=== PATIENT | male | born 1950 | race Caucasian/White ===

== ENCOUNTER 2020-07-21 12:11 | Inpatient (IN) ==
[2020-07-21] MEDS ORDERED: SODIUM CHLORIDE 0.9% 1,000 ML IV STA (13:04)
[2020-07-21 13:15] LABS: Basophils % 0.1 % (0.0-0.8); Hematocrit 40.4 VOL% (42.0-52.0); Immature Granulocytes % 2.2 %; Immature Granulocytes Absolute 0.29 #; Lymphocytes # 0.4 10*3/uL (1.4-4.0); Lymphocytes % 3.2 % (21.2-54.2); Mean Corpuscular HGB Conc 34.7 GM/DL (32-36); Mean Corpuscular Volume 96.9 FL (87-102); Mean Platelet Volume 9.9 FL (9.6-12.0); Monocytes % 2.2 % (1.7-12.7); Neutrophils % 92.3 % (38.7-73.9); Platelet Count 162 T/CUMM (130-400); Red Blood Count 4.17 MC/CUMM (3.8-5.5); Red Cell Distribution Width 12.2 % (9.3-17.3); White Blood Count 13.2 T/CUMM (4-12)
[2020-07-21 13:39] LABS: Albumin 2.2 G/DL (3.4-5.0); Bilirubin,Total 0.5 MG/DL (0.2-1.0); Calcium 8.3 MG/DL (8.5-10.1); Osmolality,Calculated 286.5 MOS/KG (273-304); Potassium 3.9 MMOL/L (3.5-5.1)
[2020-07-21 13:41] LABS: Troponin I < 0.015 NG/ML (0.00-0.045)
[2020-07-21 14:01] LABS: Ferritin 1012.2 ng/ml (26-388)
[2020-07-21 15:07] LABS: Bilirubin,Urine Negative (Negative); Blood, Urine Negative (Negative); Glucose,Urine (UA) Negative (Negative); Ketones,Urine Negative (Negative); Mucus,Urine Occasional /LPF (Occasional); Nitrite,Urine Negative (Negative); Protein,Urine 30 MG/DL; RBC,Urine 1 /HPF (0-4); Squamous Epithelial Cell,Urine Occasional /HPF (0-10); Urine Appearance CLEAR (Clear); Urine Color Yellow (Yellow); Urine Specific Gravity 1.024 (1.001-1.035); Urine Urobilinogen < 2.0 EU/DL (0.2-1.0); WBC,Urine 3 /HPF (0-6)
[2020-07-21 15:23] LABS: Lymphocytes 3 % (20-55); Segmented Neutrophils 94 % (50-85); Total Cells Counted 100
[2020-07-21] MEDS ORDERED: DEXTROSE 50% 25 GM/50 ML VIAL IV PRN (15:39)
[2020-07-21] MEDS ORDERED: ONDANSETRON 4 MG/2 ML VIAL IV PRN (15:39)
[2020-07-21] MEDS ORDERED: GLUCAGON 1 MG VIAL IM PRN (15:39)
[2020-07-21] MEDS ORDERED: ACETAMINOPHEN 325 MG TABLET PO PRN (15:39)
[2020-07-21] MEDS ORDERED: SODIUM CHLOR 0.9% KCL 20 MEQ 20 MEQ/1,000 ML BAG IV SCH (16:00)
[2020-07-21] MEDS ORDERED: AZITHROMYCIN INJ 500 MG in SODIUM CHLORIDE 0.9% 250 ML IV SCH (16:00)
[2020-07-21] MEDS ORDERED: cefTRIAXone 1,000 MG in SYRINGE 1 EACH IV SCH (16:00)
[2020-07-21 16:08] LABS: Thyroid Stimulating Hormone 0.641 uIU/ml (0.358-3.74)
[2020-07-21] MEDS: PANTOPRAZOLE 40 MG TABLET PO SCH (18:09)
[2020-07-21] MEDS: CETIRIZINE 10 MG TABLET PO SCH (18:09)
[2020-07-21] MEDS: ZINC SULFATE 220 MG CAPSULE PO SCH (18:09)
[2020-07-21] MEDS: DEXAMETHASONE 4 MG/1 ML VIAL IV SCH (18:09)
[2020-07-21] MEDS: ENOXAPARIN 40 MG/0.4 ML SYRINGE SUBCUT SCH (20:42)
[2020-07-21] MEDS: ASCORBIC ACID 500 MG TABLET PO SCH (20:42)
[2020-07-21] MEDS: ALBUTEROL INHALER 18 GM INH SCH (20:43)
[2020-07-22] MEDS: ALBUTEROL INHALER 18 GM INH SCH ×4 (01:10→19:23)
[2020-07-22 05:57] LABS: Basophils % 0.1 % (0.0-0.8); Hematocrit 36.3 VOL% (42.0-52.0); Hemoglobin 12.3 GM/DL (14.0-18.0); Immature Granulocytes % 1.4 %; Immature Granulocytes Absolute 0.12 #; Lymphocytes # 0.5 10*3/uL (1.4-4.0); Lymphocytes % 5.4 % (21.2-54.2); Mean Corpuscular HGB Conc 33.9 GM/DL (32-36); Mean Corpuscular Volume 99.2 FL (87-102); Monocytes % 2.4 % (1.7-12.7); Neutrophils % 90.7 % (38.7-73.9); Platelet Count 154 T/CUMM (130-400); Red Blood Count 3.66 MC/CUMM (3.8-5.5); Red Cell Distribution Width 12.3 % (9.3-17.3); White Blood Count 8.4 T/CUMM (4-12)
[2020-07-22 06:11] LABS: Calcium 7.9 MG/DL (8.5-10.1); Osmolality,Calculated 291.1 MOS/KG (273-304); Potassium 4.5 MMOL/L (3.5-5.1)
[2020-07-22 06:23] LABS: Hypochromasia Slight; Lymphocytes 4 % (20-55); Platelet Estimate Adequate; Segmented Neutrophils 95 % (50-85); Total Cells Counted 100
[2020-07-22] MEDS: DEXAMETHASONE 4 MG/1 ML VIAL IV SCH (10:42)
[2020-07-22] MEDS: ASCORBIC ACID 500 MG TABLET PO SCH ×2 (10:43→21:47)
[2020-07-22] MEDS: ZINC SULFATE 220 MG CAPSULE PO SCH (10:43)
[2020-07-22] MEDS: PANTOPRAZOLE 40 MG TABLET PO SCH (10:43)
[2020-07-22] MEDS: CETIRIZINE 10 MG TABLET PO SCH (10:43)
[2020-07-22] MEDS: CHOLECALCIFEROL 1,000 UNIT TABLET PO SCH (10:43)
[2020-07-22] MEDS: methylPREDNISolone SOD SUC 40 MG/1 ML VIAL IV SCH ×2 (15:35→23:01)
[2020-07-22] MEDS: ENOXAPARIN 40 MG/0.4 ML SYRINGE SUBCUT SCH (21:47)
[2020-07-23] MEDS: ALBUTEROL INHALER 18 GM INH SCH ×4 (00:35→19:04)
[2020-07-23 06:12] LABS: Basophils % 0.1 % (0.0-0.8); Hematocrit 38.6 VOL% (42.0-52.0); Hemoglobin 12.8 GM/DL (14.0-18.0); Immature Granulocytes % 1.3 %; Lymphocytes # 0.4 10*3/uL (1.4-4.0); Lymphocytes % 4.8 % (21.2-54.2); Mean Corpuscular HGB Conc 33.2 GM/DL (32-36); Mean Corpuscular Volume 100.5 FL (87-102); Mean Platelet Volume 9.6 FL (9.6-12.0); Monocytes % 1.8 % (1.7-12.7); Platelet Count 175 T/CUMM (130-400); Red Blood Count 3.84 MC/CUMM (3.8-5.5); Red Cell Distribution Width 12.4 % (9.3-17.3); White Blood Count 7.9 T/CUMM (4-12)
[2020-07-23 06:29] LABS: Calcium 8.4 MG/DL (8.5-10.1); Osmolality,Calculated 294.1 MOS/KG (273-304); Potassium 4.6 MMOL/L (3.5-5.1)
[2020-07-23 06:36] LABS: Lymphocytes 5 % (20-55); Segmented Neutrophils 94 % (50-85); Total Cells Counted 100
[2020-07-23 06:37] LABS: Ferritin 791.8 ng/ml (26-388); Macrocytosis Slight; Platelet Estimate Normal
[2020-07-23] MEDS: CHOLECALCIFEROL 1,000 UNIT TABLET PO SCH (08:20)
[2020-07-23] MEDS: CETIRIZINE 10 MG TABLET PO SCH (08:20)
[2020-07-23] MEDS: ASCORBIC ACID 500 MG TABLET PO SCH ×2 (08:20→21:52)
[2020-07-23] MEDS: PANTOPRAZOLE 40 MG TABLET PO SCH (08:20)
[2020-07-23] MEDS: ZINC SULFATE 220 MG CAPSULE PO SCH (08:20)
[2020-07-23] MEDS: methylPREDNISolone SOD SUC 40 MG/1 ML VIAL IV SCH ×3 (08:38→23:26)
[2020-07-23] MEDS ORDERED: REMDESIVIR 200 MG in SODIUM CHLORIDE 0.9% 210 ML IV ONE (09:00)
[2020-07-23] MEDS ORDERED: SODIUM CHLORIDE 0.9% 1,000 ML IV PRN (12:50)
[2020-07-23] MEDS: ENOXAPARIN 40 MG/0.4 ML SYRINGE SUBCUT SCH (21:52)
[2020-07-24] MEDS: ALBUTEROL INHALER 18 GM INH SCH ×4 (00:14→19:03)
[2020-07-24] MEDS: methylPREDNISolone SOD SUC 40 MG/1 ML VIAL IV SCH ×3 (07:58→17:00)
[2020-07-24] MEDS: CETIRIZINE 10 MG TABLET PO SCH (08:00)
[2020-07-24] MEDS: ZINC SULFATE 220 MG CAPSULE PO SCH (08:00)
[2020-07-24] MEDS: PANTOPRAZOLE 40 MG TABLET PO SCH (08:00)
[2020-07-24] MEDS: ASCORBIC ACID 500 MG TABLET PO SCH ×2 (08:00→21:10)
[2020-07-24] MEDS: CHOLECALCIFEROL 1,000 UNIT TABLET PO SCH (08:00)
[2020-07-24] MEDS: REMDESIVIR 100 MG in SODIUM CHLORIDE 0.9% 230 ML IV SCH (08:46)
[2020-07-24] MEDS: ENOXAPARIN 40 MG/0.4 ML SYRINGE SUBCUT SCH (21:10)
[2020-07-25] MEDS: ALBUTEROL INHALER 18 GM INH SCH ×4 (00:06→18:15)
[2020-07-25] MEDS: methylPREDNISolone SOD SUC 40 MG/1 ML VIAL IV SCH ×3 (01:53→16:42)
[2020-07-25 05:23] LABS: Basophils % 0.1 % (0.0-0.8); Hematocrit 41.6 VOL% (42.0-52.0); Hemoglobin 13.6 GM/DL (14.0-18.0); Immature Granulocytes % 1.9 %; Immature Granulocytes Absolute 0.17 #; Lymphocytes # 0.4 10*3/uL (1.4-4.0); Lymphocytes % 4.3 % (21.2-54.2); Mean Corpuscular HGB Conc 32.7 GM/DL (32-36); Mean Platelet Volume 10.1 FL (9.6-12.0); Monocytes % 3.4 % (1.7-12.7); Neutrophils % 90.3 % (38.7-73.9); Platelet Count 163 T/CUMM (130-400); Red Blood Count 4.08 MC/CUMM (3.8-5.5); Red Cell Distribution Width 12.2 % (9.3-17.3); White Blood Count 8.9 T/CUMM (4-12)
[2020-07-25 05:46] LABS: Lymphocytes 4 % (20-55); Macrocytosis Slight; Platelet Estimate Normal; Segmented Neutrophils 93 % (50-85); Total Cells Counted 100
[2020-07-25 05:57] LABS: Albumin 2.2 G/DL (3.4-5.0); Bilirubin,Total 0.6 MG/DL (0.2-1.0); Calcium 8.4 MG/DL (8.5-10.1); Osmolality,Calculated 295.8 MOS/KG (273-304); Potassium 4.2 MMOL/L (3.5-5.1); Total Protein 6.5 G/DL (6.4-8.3)
[2020-07-25] MEDS: PANTOPRAZOLE 40 MG TABLET PO SCH (10:13)
[2020-07-25] MEDS: REMDESIVIR 100 MG in SODIUM CHLORIDE 0.9% 230 ML IV SCH (10:13)
[2020-07-25] MEDS: ASCORBIC ACID 500 MG TABLET PO SCH ×2 (10:13→21:00)
[2020-07-25] MEDS: CHOLECALCIFEROL 1,000 UNIT TABLET PO SCH (10:13)
[2020-07-25] MEDS: ZINC SULFATE 220 MG CAPSULE PO SCH (10:14)
[2020-07-25] MEDS: CETIRIZINE 10 MG TABLET PO SCH (10:14)
[2020-07-25] MEDS: ENOXAPARIN 40 MG/0.4 ML SYRINGE SUBCUT SCH (21:00)
[2020-07-26] MEDS: methylPREDNISolone SOD SUC 40 MG/1 ML VIAL IV SCH ×3 (02:05→22:10)
[2020-07-26] MEDS: ALBUTEROL INHALER 18 GM INH SCH ×2 (02:05→06:10)
[2020-07-26] MEDS: ASCORBIC ACID 500 MG TABLET PO SCH ×3 (02:05→21:05)
[2020-07-26 06:52] LABS: Basophils % 0.1 % (0.0-0.8); Hematocrit 37.5 VOL% (42.0-52.0); Hemoglobin 12.6 GM/DL (14.0-18.0); Immature Granulocytes % 1.7 %; Immature Granulocytes Absolute 0.14 #; Lymphocytes # 0.5 10*3/uL (1.4-4.0); Lymphocytes % 6.5 % (21.2-54.2); Mean Corpuscular HGB Conc 33.6 GM/DL (32-36); Mean Corpuscular Volume 101.4 FL (87-102); Monocytes % 4.8 % (1.7-12.7); Neutrophils % 86.9 % (38.7-73.9); Platelet Count 144 T/CUMM (130-400); Red Cell Distribution Width 12.2 % (9.3-17.3); White Blood Count 8.3 T/CUMM (4-12)
[2020-07-26 07:20] LABS: Calcium 8.1 MG/DL (8.5-10.1); Osmolality,Calculated 289.1 MOS/KG (273-304); Potassium 4.5 MMOL/L (3.5-5.1)
[2020-07-26] MEDS: CHOLECALCIFEROL 1,000 UNIT TABLET PO SCH (10:04)
[2020-07-26] MEDS: FAMOTIDINE 20 MG TABLET PO SCH ×2 (10:04→21:05)
[2020-07-26] MEDS: CETIRIZINE 10 MG TABLET PO SCH (10:04)
[2020-07-26] MEDS: REMDESIVIR 100 MG in SODIUM CHLORIDE 0.9% 230 ML IV SCH (10:04)
[2020-07-26] MEDS: ZINC SULFATE 220 MG CAPSULE PO SCH (10:04)
[2020-07-26] MEDS: ENOXAPARIN 40 MG/0.4 ML SYRINGE SUBCUT SCH (21:05)
[2020-07-27 06:44] LABS: Basophils % 0.3 % (0.0-0.8); Hemoglobin 13.4 GM/DL (14.0-18.0); Immature Granulocytes % 1.5 %; Immature Granulocytes Absolute 0.11 #; Lymphocytes # 0.3 10*3/uL (1.4-4.0); Lymphocytes % 4.6 % (21.2-54.2); Mean Corpuscular HGB Conc 33.5 GM/DL (32-36); Mean Corpuscular Volume 100.8 FL (87-102); Mean Platelet Volume 10.5 FL (9.6-12.0); Monocytes % 2.1 % (1.7-12.7); Neutrophils % 91.5 % (38.7-73.9); Platelet Count 147 T/CUMM (130-400); Red Blood Count 3.97 MC/CUMM (3.8-5.5); White Blood Count 7.2 T/CUMM (4-12)
[2020-07-27 08:16] LABS: Bilirubin,Total 0.9 MG/DL (0.2-1.0); Calcium 8.2 MG/DL (8.5-10.1); Osmolality,Calculated 285.4 MOS/KG (273-304); Potassium 4.5 MMOL/L (3.5-5.1); Total Protein 5.7 G/DL (6.4-8.3)
[2020-07-27 08:58] LABS: Anisocytosis 1+; Band Neutrophils 2 % (0-10); Lymphocytes 5 % (20-55); Platelet Estimate Adequate; Segmented Neutrophils 91 % (50-85); Total Cells Counted 100
[2020-07-27 08:59] LABS: Macrocytosis 1+
[2020-07-27] MEDS: CETIRIZINE 10 MG TABLET PO SCH (09:25)
[2020-07-27] MEDS: FAMOTIDINE 20 MG TABLET PO SCH ×2 (09:26→19:50)
[2020-07-27] MEDS: ASCORBIC ACID 500 MG TABLET PO SCH ×2 (09:26→19:50)
[2020-07-27] MEDS: CHOLECALCIFEROL 1,000 UNIT TABLET PO SCH (09:26)
[2020-07-27] MEDS: ZINC SULFATE 220 MG CAPSULE PO SCH (09:26)
[2020-07-27] MEDS: methylPREDNISolone SOD SUC 40 MG/1 ML VIAL IV SCH ×2 (09:40→22:50)
[2020-07-27] MEDS: REMDESIVIR 100 MG in SODIUM CHLORIDE 0.9% 230 ML IV SCH (10:37)
[2020-07-27] MEDS: ENOXAPARIN 40 MG/0.4 ML SYRINGE SUBCUT SCH (19:50)
[2020-07-28 06:38] LABS: Basophils % 0.1 % (0.0-0.8); Hematocrit 40.2 VOL% (42.0-52.0); Hemoglobin 13.6 GM/DL (14.0-18.0); Immature Granulocytes % 2.1 %; Lymphocytes # 0.4 10*3/uL (1.4-4.0); Lymphocytes % 4.3 % (21.2-54.2); Mean Corpuscular HGB Conc 33.8 GM/DL (32-36); Mean Corpuscular Volume 99.5 FL (87-102); Mean Platelet Volume 9.7 FL (9.6-12.0); Monocytes % 2.4 % (1.7-12.7); Neutrophils % 91.1 % (38.7-73.9); Platelet Count 157 T/CUMM (130-400); Red Blood Count 4.04 MC/CUMM (3.8-5.5); Red Cell Distribution Width 12.1 % (9.3-17.3); White Blood Count 9.7 T/CUMM (4-12)
[2020-07-28 07:04] LABS: Calcium 8.3 MG/DL (8.5-10.1); Ferritin 508.1 ng/ml (26-388); Osmolality,Calculated 285.5 MOS/KG (273-304); Potassium 4.5 MMOL/L (3.5-5.1)
[2020-07-28] MEDS ORDERED: TIMOLOL 0.5% OPH SOLN 5 ML BOTTLE BOTH EYES SCH (09:00)
[2020-07-28] MEDS: methylPREDNISolone SOD SUC 40 MG/1 ML VIAL IV SCH (09:45)
[2020-07-28] MEDS: ZINC SULFATE 220 MG CAPSULE PO SCH (09:45)
[2020-07-28] MEDS: FAMOTIDINE 20 MG TABLET PO SCH (09:45)
[2020-07-28] MEDS: CETIRIZINE 10 MG TABLET PO SCH (09:45)
[2020-07-28] MEDS: CHOLECALCIFEROL 1,000 UNIT TABLET PO SCH (09:45)
[2020-07-28] MEDS: ASCORBIC ACID 500 MG TABLET PO SCH (09:45)
[2020-07-28 11:19] VITALS: BP 129/69
[2020-07-28 12:32] LABS: Segmented Neutrophils 96 % (50-85); Total Cells Counted 100
[2020-07-28 12:43] LABS: Platelet Estimate Adequate; Polychromasia Slight
== END 2020-07-28 13:35 | disposition home or self-care (01) | DRG 177 ==
LOC: N.ED 12:11 → N.EDINP 12:11 → SUATTDRO 15:39 → N.2E 16:28 → SUATTDRO 07-23 09:46
PROVIDERS: ADMIT Internal Medicine; ATTEND Internal Medicine

== ENCOUNTER 2022-02-05 11:25 | Observation (INO) ==
[2022-02-05 12:10] LABS: Basophils % 0.3 % (0.0-0.8); Eosinophils # 0.2 10*3/uL (0.0-0.87); Eosinophils % 2.4 % (0.00-10.9); Hemoglobin 13.7 GM/DL (14.0-18.0); Immature Granulocytes % 0.4 %; Immature Granulocytes Absolute 0.03 #; Lymphocytes # 1.1 10*3/uL (1.4-4.0); Lymphocytes % 15.9 % (21.2-54.2); Mean Corpuscular HGB Conc 31.9 GM/DL (32-36); Mean Corpuscular Volume 93.5 FL (87-102); Mean Platelet Volume 9.3 FL (9.6-12.0); Monocytes # 0.3 10*3/uL (0.11-0.8); Monocytes % 4.8 % (1.7-12.7); Neutrophils % 76.2 % (38.7-73.9); Platelet Count 203 T/CUMM (130-400); Red Cell Distribution Width 13.9 % (9.3-17.3)
[2022-02-05 12:21] LABS: PT Patient Result 11.5 SECS (10.5-12.0); Partial Thromboplastin Time 27.9 SECS (23.7-32.9)
[2022-02-05 12:23] LABS: Calcium 9.1 MG/DL (8.5-10.1); Osmolality,Calculated 284.4 MOS/KG (273-304); Potassium 4.1 MMOL/L (3.5-5.1)
[2022-02-05] MEDS ORDERED: CLINDAMYCIN INJ 300 MG/50 ML PREMIX IV STA (14:42)
[2022-02-05 20:43] LABS: Prostate Specific Antigen Diag 4.38 NG/ML (0-3.60)
[2022-02-05] MEDS ORDERED: PROMETHAZINE 25 MG/1 ML VIAL IM PRN (20:59)
[2022-02-05] MEDS ORDERED: ACETAMINOPHEN 325 MG TABLET PO PRN (20:59)
[2022-02-05] MEDS ORDERED: ONDANSETRON 4 MG/2 ML VIAL IV PRN (20:59)
[2022-02-05] MEDS ORDERED: CLINDAMYCIN 300 MG CAPSULE PO SCH (22:00)
[2022-02-05] MEDS: carvediloL 3.125 MG TABLET PO SCH (22:39)
[2022-02-05] MEDS: SACUBITRIL/VALSARTAN 49-51 MG TABLET PO SCH (22:39)
[2022-02-06] MEDS ORDERED: CLINDAMYCIN INJ 600 MG/50 ML PREMIX IV SCH (02:00)
[2022-02-06 06:28] LABS: Basophils % 0.5 % (0.0-0.8); Eosinophils # 0.2 10*3/uL (0.0-0.87); Eosinophils % 2.7 % (0.00-10.9); Hematocrit 38.3 VOL% (42.0-52.0); Hemoglobin 11.9 GM/DL (14.0-18.0); Immature Granulocytes % 0.3 %; Immature Granulocytes Absolute 0.02 #; Lymphocytes # 1.6 10*3/uL (1.4-4.0); Lymphocytes % 26.5 % (21.2-54.2); Mean Corpuscular HGB Conc 31.1 GM/DL (32-36); Mean Corpuscular Volume 95.8 FL (87-102); Mean Platelet Volume 9.3 FL (9.6-12.0); Monocytes # 0.4 10*3/uL (0.11-0.8); Monocytes % 6.6 % (1.7-12.7); Neutrophils % 63.4 % (38.7-73.9); Platelet Count 177 T/CUMM (130-400); Red Cell Distribution Width 13.9 % (9.3-17.3)
[2022-02-06 06:41] LABS: Calcium 9.1 MG/DL (8.5-10.1); Osmolality,Calculated 285.1 MOS/KG (273-304); Potassium 3.8 MMOL/L (3.5-5.1)
[2022-02-06] MEDS ORDERED: PANTOPRAZOLE 40 MG TABLET PO SCH (09:00)
[2022-02-06] MEDS ORDERED: ASPIRIN EC 81 MG TABLET PO SCH (09:00)
[2022-02-06] MEDS: carvediloL 3.125 MG TABLET PO SCH (09:19)
[2022-02-06] MEDS: SACUBITRIL/VALSARTAN 49-51 MG TABLET PO SCH (09:28)
[2022-02-06 11:23] VITALS: BP 120/57
[2022-02-06] MEDS ORDERED: CLINDAMYCIN 300 MG CAPSULE PO SCH (12:00)
[2022-02-06] MEDS ORDERED: ENOXAPARIN 40 MG/0.4 ML SYRINGE SUBCUT SCH (14:30)
== END 2022-02-06 11:40 | disposition home or self-care (01) ==
LOC: N.3E 11:25 → N.ED 11:25 → N.3E 21:40
PROVIDERS: ADMIT Emergency Medicine; ATTEND Emergency Medicine